=== PATIENT | female | born 1990 | race African-American/Black ===

== ENCOUNTER 2024-12-28 20:29 | Emergency (ER) | payer BC ==
[~2024-12-28] VITALS: Ht 162.6 cm; Wt 75.0 kg
[2024-12-28 21:10] VITALS: O2SAT 100
[2024-12-28] MEDS: ACETAMINOPHEN 325MG TABLET PO NR (22:00)
[2024-12-28] MEDS: ONDANSETRON HCL 4MG TABLET PO NR (22:48)
[2024-12-29 00:09] LABS: BASOPHILS % 0.3 % (0.0-2.0); EOSINOPHILS % 0.1 % (0.0-5.0); HEMATOCRIT. 35.4 % (36.0-48.0); HEMOGLOBIN. 11.8 g/dL (12.0-16.0); LYMPHOCYTES % 8.3 % (20.0-50.0); MEAN CORPUSCULAR HEMOGLOBIN 29.1 pg (28.0-32.0); MEAN CORPUSCULAR HGB CONC 33.3 g/dL (31.0-37.0); MEAN CORPUSCULAR VOLUME 87.4 fL (81.0-99.0); MEAN PLATELET VOLUME 8.8 fl (7.4-10.4); MONOCYTES % 14.6 % (2.0-8.0); NEUTROPHILS % 76.7 % (40.0-76.0); PLATELET 158 x1000/uL (130-400); RED BLOOD CELL COUNT 4.05 mill/uL (4.2-5.4); RED CELL DISTRIBUTION WIDTH 12.4 % (11.6-14.6)
[2024-12-29 00:14] LABS: CHLORIDE 107 mEq/L (98-107); POTASSIUM 3.8 mEq/L (3.5-5.1); SODIUM 136 mEq/L (136-145)
[2024-12-29 00:15] LABS: CALCIUM 8.9 mg/dL (8.7-10.4); CARBON DIOXIDE 20 mEq/L (21-32)
[2024-12-29 00:20] LABS: CREATININE 0.9 mg/dL (0.6-1.0); GLUCOSE 106 mg/dL (70-105)
[2024-12-29 00:21] LABS: UREA NITROGEN BLOOD 13 mg/dL (9-23)
[2024-12-29 00:22] LABS: ALANINE AMINOTRANSFERASE 14 IU/L (10-49); ALBUMIN 4.2 g/dL (3.2-4.8); ASPARTATE AMINOTRANSFERASE 19 IU/L (<34)
[2024-12-29 00:23] LABS: BILIRUBIN TOTAL 0.4 mg/dL (0.1-1.0); PROTEIN TOTAL 6.8 g/dL (6.0-8.3)
[2024-12-29 00:43] LABS: BILIRUBIN DIRECT < 0.1 mg/dL (<=3.0)
[2024-12-29] MEDS ORDERED: NIRM1TAB8 PO (03:06)
[2024-12-29] MEDS ORDERED: ACET-2708 MT (03:06)
[2024-12-29 03:36] VITALS: BP 94/66; PULSE 70; RESP 14; TEMP 37.4; O2SAT 96
[2024-12-29] MEDS: ACETAMINOPHEN 325MG TABLET PO ONE (03:36)
== END 2024-12-29 03:41 | disposition home or self-care (01) ==
LOC: ER 20:29
DX: U07.1 COVID-19 (principal); J45.909 Unspecified asthma, uncomplicated; Z98.890 Other specified postprocedural states
CPT/HCPCS: 99284; 71045; 80076; 80048; 83690; 85025; 36415; 87426; 87804 ×2; Q0162